=== PATIENT | male | born 1990 | race Caucasian/White ===

== ENCOUNTER 2018-09-18 08:26 | Emergency (ER) | payer OTHER ==
[2018-09-18] MEDS ORDERED: DEXAMETHASONE 10 MG/ML VIAL PO STA (08:46)
--- NOTE | 2018-09-18 08:49 | ED Physician Documentation ---
PD HPI URI - Stated complaint Stated Complaint: COUGH/CHEST CONGESTION - History obtained from History obtained from: Patient - History of Present Illness Timing - onset: How many days ago (4) Timing duration: Days (4) Timing details: Gradual onset, Still present Associated symptoms: Nasal congestion, Rhinorrhea, Sore throat, Productive cough. No: Fever Contributing factors: Sick contact (daughter and son sick with similar) Improves by: Rest Worsened by: Activity Similar symptoms before: Diagnosis (OM) Recently seen: Not recently seen - Additional information Additional information: Previously healthy 28-year-old male who has had a problem previously with otitis has 2 small children at home that are sick with a cough and congestion. He is now developed a cough for the past 2 days and has been coughing up thick yellow phlegm. He is got a bit of a sore throat he does not have shortness of breath or wheezing. Review of Systems Constitutional: reports: Myalgias, Fatigue. denies: Fever Eyes: denies: Decreased vision Ears: denies: Ear pain Nose: reports: Rhinorrhea / runny nose, Congestion Throat: reports: Sore throat Cardiac: denies: Chest pain / pressure, Palpitations Respiratory: reports: Cough. denies: Dyspnea GI: denies: Vomiting PD PAST MEDICAL HISTORY - Present Medications Home Medications: Ambulatory Orders Medication Instructions Recorded Confirmed Amox/Clav 875/125 [Augmentin] 1 each PO Q12H #20 tablet 09/18/18 PD ED PE NORMAL - General General: Alert and oriented X 3, No acute distress, Well developed/nourished - HEENT HEENT: Atraumatic, PERRL, EOMI, Other (minimal inflamation to both TM's with dense erythemat to the pharynx with 1+ tonsils ) - Neck Neck: Supple, no meningeal sign, No bony TTP - Cardiac Cardiac: RRR, No murmur - Respiratory Respiratory: No respiratory distress, Clear bilaterally - Abdomen Abdomen: Soft, Non tender - Back Back: No CVA TTP, No spinal TTP - Derm Derm: Normal color, Warm and dry, No rash - Extremities Extremities: No deformity, No edema - Neuro Neuro: Alert and oriented X 3, scouring machine tender 2-12 intact, No motor deficit, No sensory deficit, Normal speech Eye Opening: Spontaneous Motor: Obeys Commands Verbal: Oriented GCS Score: 15 - Psych Psych: Normal mood, Normal affect PD MEDICAL DECISION MAKING - ED course Complexity details: considered differential, d/w patient, d/w family ED course: 28-year-old male with cough and congestion has a prior history of multiple incidence of otitis and today he has minimal findings on exam. He is administered dexamethasone 10 mg orally and with his prior history we will treat him with antibiotic as well. Departure - Departure Disposition: 01 Home, Self Care Clinical Impression: Otitis media Qualifiers: Otitis media type: suppurative Chronicity: acute Laterality: bilateral Recurrence: not specified as recurrent Spontaneous tympanic membrane rupture: without spontaneous rupture Qualified Code(s): H66.003 - Acute suppurative otitis media without spontaneous rupture of ear drum, bilateral Condition: Stable Instructions: ED Otitis Media Acute Adult Follow-Up: [facility] [Provider Group] Prescriptions: Amox/Clav 875/125 [Augmentin] 1 each PO Q12H #20 tablet
[2018-09-18 08:53] VITALS: BP 117/71
[2018-09-18] MEDS ORDERED: CHERRY SYRUP 10 ML UDC PO ONE (08:58)
== END 2018-09-18 09:13 | disposition home or self-care (01) ==
LOC: ED 08:26
DX: H66.003 Acute suppurative otitis media without spontaneous rupture of ear drum, bilateral (principal)
CPT/HCPCS: 99283; A9270

== ENCOUNTER 2018-10-31 10:40 | Emergency (ER) | payer OTHER ==
--- NOTE | 2018-10-31 12:15 | ED Physician Documentation ---
PD HPI URI - Stated complaint Stated Complaint: THROAT PX/COLD - Chief complaint Chief Complaint: General - History obtained from History obtained from: Patient - History of Present Illness Timing - onset: How many days ago (3) Timing duration: Days Timing details: Gradual onset, Still present Associated symptoms: Nasal congestion, Rhinorrhea, Sinus pain, Dry cough Contributing factors: Sick contact (both children are ill with oM) Improves by: Rest, Medication Similar symptoms before: Has not had sx before Recently seen: Not recently seen - Additional information Additional information: 28-year-old male has developed cough and congestion with sinus pain bit of a sore throat and drainage down the back of his throat. He has 2 small children who have been sick for about 1 week with cough and congestion and he thought they would improve now all 3 of them are ill. Review of Systems Constitutional: reports: Myalgias. denies: Fever Eyes: denies: Decreased vision Ears: denies: Ear pain Nose: reports: Rhinorrhea / runny nose, Congestion, Sinus pressure / pain Throat: reports: Sore throat Respiratory: reports: Cough GI: denies: Vomiting PD PAST MEDICAL HISTORY - Past Medical History Past Medical History: No - Past Surgical History Past Surgical History: No - Present Medications Home Medications: Ambulatory Orders Medication Instructions Recorded Confirmed No Known Home Medications 10/31/18 10/31/18 - Allergies Allergies/Adverse Reactions: Allergies Allergy/AdvReac Type Severity Reaction Status Date / Time nickel Allergy Unknown Verified 10/31/18 10:51 - Social History Does the pt smoke?: Yes Smoking Status: Current every day smoker Does the pt drink ETOH?: Yes Does the pt have substance abuse?: No - Immunizations Immunizations are current?: Yes - POLST Patient has POLST: No PD ED PE NORMAL - Vitals Vital signs reviewed: Yes (normal ) - General General: Alert and oriented X 3, No acute distress, Well developed/nourished - HEENT HEENT: Atraumatic, PERRL, EOMI, Pharynx benign, Other (The right TM is clear and the left is inflamed with indistinct landmarks. There is maxilary sinus point tenderness bilaterally ) - Neck Neck: Supple, no meningeal sign, No bony TTP - Cardiac Cardiac: RRR, No murmur - Respiratory Respiratory: No respiratory distress, Clear bilaterally - Abdomen Abdomen: Soft, Non tender - Back Back: No CVA TTP, No spinal TTP - Derm Derm: Normal color, Warm and dry, No rash - Extremities Extremities: No deformity, No edema - Neuro Neuro: Alert and oriented X 3, scowman 2-12 intact, No motor deficit, No sensory deficit, Normal speech Eye Opening: Spontaneous Motor: Obeys Commands Verbal: Oriented GCS Score: 15 - Psych Psych: Normal mood, Normal affect Results - Vitals Vitals: Vital Signs - 24 hr 10/31/18 10:46 Temperature 36.5 C Heart Rate 71 Respiratory 16 Rate Blood Pressure 126/71 O2 Saturation 98 Oxygen O2 Source Room air PD MEDICAL DECISION MAKING - ED course Complexity details: considered differential, d/w patient ED course: 28-year-old male appears to cut otitis from his children he is administered dexamethasone 10 mg orally and we will place him on some Augmentin. Departure - Departure Disposition: 01 Home, Self Care Clinical Impression: Otitis media Qualifiers: Otitis media type: suppurative Chronicity: acute Laterality: left Recurrence: not specified as recurrent Spontaneous tympanic membrane rupture: without spontaneous rupture Qualified Code(s): H66.002 - Acute suppurative otitis media without spontaneous rupture of ear drum, left ear Instructions: ED Otitis Media Acute Adult Follow-Up: [facility] [Provider Group]
[2018-10-31 12:41] VITALS: BP 114/68
== END 2018-10-31 12:41 | disposition home or self-care (01) ==
LOC: ED 10:40
DX: H66.002 Acute suppurative otitis media without spontaneous rupture of ear drum, left ear (principal); F17.200 Nicotine dependence, unspecified, uncomplicated
CPT/HCPCS: 99283

== ENCOUNTER 2018-12-28 13:30 | Emergency (ER) | payer OTHER ==
[2018-12-28 13:53] VITALS: BP 123/67
--- NOTE | 2018-12-28 14:33 | ED Physician Documentation ---
PD HPI URI - Stated complaint Stated Complaint: FLU LIKE SYSTOMS - Chief complaint Chief Complaint: Heent - Additional information Additional information: 28-year-old male presents the emergency department with himself and his 2 children with complaints of nasal congestion, cough, generally not feeling well and body aches. Symptoms started yesterday. No attempts at symptom management. No reports of shortness of breath, chest pain, abdominal pain, nausea, vomiting diarrhea Review of Systems Constitutional: reports: Myalgias Eyes: denies: Discharge Ears: denies: Ear pain Nose: reports: Congestion Throat: reports: Sore throat Cardiac: denies: Chest pain / pressure Respiratory: denies: Wheezing GI: denies: Abdominal Pain : denies: Dysuria Skin: denies: Rash Musculoskeletal: denies: Neck pain Neurologic: denies: Generalized weakness PD PAST MEDICAL HISTORY - Past Surgical History Past Surgical History: No - Present Medications Home Medications: Ambulatory Orders Medication Instructions Recorded Confirmed Amox/Clav 875/125 [Augmentin] 1 each PO Q12H #20 tablet 10/31/18 - Allergies Allergies/Adverse Reactions: Allergies Allergy/AdvReac Type Severity Reaction Status Date / Time nickel Allergy Unknown Verified 10/31/18 10:51 - Social History Does the pt smoke?: Yes Smoking Status: Current every day smoker Does the pt drink ETOH?: Yes Does the pt have substance abuse?: No - Immunizations Immunizations are current?: Yes - POLST Patient has POLST: No PD ED PE NORMAL - General General: Alert and oriented X 3, No acute distress - HEENT HEENT: Atraumatic, PERRL, EOMI, Ears normal, Moist mucous membranes, Pharynx benign - Neck Neck: Supple, no meningeal sign - Cardiac Cardiac: RRR, Strong equal pulses - Respiratory Respiratory: No respiratory distress, Clear bilaterally - Derm Derm: Normal color - Extremities Extremities: No deformity - Neuro Neuro: Alert and oriented X 3, Normal speech - Psych Psych: Normal affect Results - Vitals Vitals: Vital Signs - 24 hr 12/28/18 13:50 Temperature 36.8 C Heart Rate 88 Blood Pressure 123/67 O2 Saturation 100 Oxygen O2 Source Room air PD MEDICAL DECISION MAKING - ED course ED course: The patient's symptoms are consistent with a viral process and currently the patient appears appropriate for ongoing outpatient management. I discussed warning signs and recommended returning for any worsening or any concerns Departure - Departure Disposition: Home, Self Care Clinical Impression: Viral URI Condition: Good Instructions: ED Upper Resp Infec No Abx Tx Follow-Up: [facility] [Provider Group] Comments: Please return for worsening symptoms or any concern Forms: Activity restrictions
== END 2018-12-28 14:50 | disposition home or self-care (01) ==
LOC: ED 13:30
DX: J06.9 Acute upper respiratory infection, unspecified (principal); F17.200 Nicotine dependence, unspecified, uncomplicated
CPT/HCPCS: 99282

== ENCOUNTER 2019-01-17 13:04 | Emergency (ER) | payer OTHER ==
[2019-01-17] MEDS ORDERED: SODIUM CHLORIDE 0.9% 2,000 ML IV ONE (13:31)
[2019-01-17] MEDS ORDERED: LOPERAMIDE 2 MG CAPSULE PO STA (13:31)
--- NOTE | 2019-01-17 13:33 | ED Physician Documentation ---
PD HPI NVD - Stated complaint Stated Complaint: FLU LIKE SX - Chief complaint Chief Complaint: Abd Pain - History obtained from History obtained from: Patient - History of Present Illness Timing - details: Still present (4 days of watery diarrhea. Feels bloated but no abd pain. Nauseous, but not vomiting. Not sure about fevers. His sons had diarrhea last week but only for 1 day. No travel/abx or camping.) Review of Systems Constitutional: reports: Chills, Myalgias, Fatigue. denies: Fever Respiratory: denies: Dyspnea, Cough GI: reports: Nausea, Diarrhea. denies: Abdominal Pain, Vomiting, Hematemesis, Bloody / black stool PD PAST MEDICAL HISTORY - Past Surgical History Past Surgical History: No - Present Medications Home Medications: Ambulatory Orders Medication Instructions Recorded Confirmed Amox/Clav 875/125 [Augmentin] 1 each PO Q12H #20 tablet 10/31/18 - Allergies Allergies/Adverse Reactions: Allergies Allergy/AdvReac Type Severity Reaction Status Date / Time nickel Allergy Unknown Verified 10/31/18 10:51 - Social History Does the pt smoke?: Yes Smoking Status: Current every day smoker Does the pt drink ETOH?: Yes Does the pt have substance abuse?: No - Immunizations Immunizations are current?: Yes - POLST Patient has POLST: No PD ED PE NORMAL - Vitals Vital signs reviewed: Yes - General General: Alert and oriented X 3, No acute distress - HEENT HEENT: Other (tacky MM) - Cardiac Cardiac: RRR, No murmur - Respiratory Respiratory: No respiratory distress, Clear bilaterally - Abdomen Abdomen: Normal bowel sounds, Soft, Non tender - Back Back: No CVA TTP - Derm Derm: No rash - Neuro Neuro: Alert and oriented X 3, Normal speech Results - Vitals Vitals: Vital Signs - 24 hr 01/17/19 01/17/19 13:16 14:45 Temperature 36.6 C 36.6 C Heart Rate 80 70 Respiratory 16 16 Rate Blood Pressure 134/62 H 132/64 H O2 Saturation 99 100 Oxygen O2 Source Room air - Labs Labs: Microbiology 01/17/19 14:25 Campylobacter Antigen Assay - Final Stool Laboratory Tests 01/17/19 13:50 Sodium 135 Potassium 3.9 Chloride 101 Carbon Dioxide 24 Anion Gap 10.0 BUN 8 Creatinine 1.0 Estimated GFR (MDRD) 90 Glucose 84 Calcium 8.7 Total Bilirubin 0.9 AST 29 ALT 33 Alkaline Phosphatase 45 Total Protein 8.0 Albumin 4.5 Globulin 3.5 Albumin/Globulin Ratio 1.3 Lipase 34 PD MEDICAL DECISION MAKING - ED course ED course: 28 yo M with 4 d diarrhea. Lytes ok, feeling better after IVF, stool sent. Departure - Departure Disposition: Home, Self Care Clinical Impression: Diarrhea Condition: Good Record reviewed to determine appropriate education?: Yes Instructions: ED Gastroenteritis Report Pend Comments: If stool cultures are positive, we will call you. Return if worse. [place] 48 [place]. You can take Imodium which is available [id number] for the diarrhea. Forms: Activity restrictions Discharge Date/Time: 01/17/19 15:40
[2019-01-17 14:38] LABS: ALBUMIN 4.5 g/dL (3.2-5.5); ALBUMIN/GLOBULIN RATIO 1.3 (1.0-2.2); BILIRUBIN,TOTAL 0.9 mg/dL (0.2-1.0); CALCIUM 8.7 mg/dL (8.5-10.3)
[2019-01-17 14:45] VITALS: BP 132/64
== END 2019-01-17 15:40 | disposition home or self-care (01) ==
LOC: ED 13:04
DX: R19.7 Diarrhea, unspecified (principal); F17.200 Nicotine dependence, unspecified, uncomplicated
CPT/HCPCS: 36415; 80053; 83690; 87045; 87046; 87493; 96360; 96361; 99282; 99283; A9270

== ENCOUNTER 2019-07-30 08:05 | Emergency (ER) | payer OTHER ==
--- NOTE | 2019-07-30 08:29 | ED Physician Documentation ---
PD HPI URI - Stated complaint Stated Complaint: SINUS PRESSURE/COUGH - Chief complaint Chief Complaint: Resp - History obtained from History obtained from: Patient - History of Present Illness Timing - onset: How many weeks ago (1) Timing duration: Weeks (1) Timing details: Gradual onset (has had a week of cough, malaise, sore throat, congestion. Persistent.) Associated symptoms: Nasal congestion, Sore throat, Dry cough. No: Fever, Swollen nodes, Chest pain Contributing factors: Sick contact (daughter has similar symptoms.). No: COPD / asthma Improves by: No: Medication (OTC cough meds not helping. Poor sleep with cough.) Similar symptoms before: Has not had sx before Review of Systems Constitutional: reports: Chills, Myalgias. denies: Fever Nose: reports: Congestion Throat: reports: Sore throat Cardiac: denies: Chest pain / pressure Respiratory: reports: Cough. denies: Dyspnea, Wheezing GI: denies: Nausea, Vomiting, Diarrhea Skin: denies: Rash Neurologic: denies: Altered mental status, Headache PD PAST MEDICAL HISTORY - Past Medical History Cardiovascular: None Respiratory: None - Past Surgical History Past Surgical History: No - Present Medications Home Medications: Ambulatory Orders Medication Instructions Recorded Confirmed Benzonatate [Tessalon Perle] 100 mg PO TID PRN #20 capsule 07/30/19 Cetirizine [ZyrTEC] 10 mg PO DAILY #15 tablet 07/30/19 dexAMETHasone [Decadron] 4 mg PO DAILY #5 tablet 07/30/19 - Allergies Allergies/Adverse Reactions: Allergies Allergy/AdvReac Type Severity Reaction Status Date / Time nickel Allergy Unknown Verified 07/30/19 08:22 - Social History Does the pt smoke?: Yes Smoking Status: Current every day smoker Does the pt drink ETOH?: Yes Does the pt have substance abuse?: No - Immunizations Immunizations are current?: Yes - POLST Patient has POLST: No PD ED PE NORMAL - Vitals Vital signs reviewed: Yes - General General: Alert and oriented X 3, No acute distress, Well developed/nourished - HEENT HEENT: Ears normal, Pharynx benign - Neck Neck: Supple, no meningeal sign, No adenopathy - Cardiac Cardiac: RRR, No murmur - Respiratory Respiratory: Clear bilaterally - Derm Derm: Normal color, Warm and dry - Neuro Neuro: Alert and oriented X 3, No motor deficit, Normal speech Results - Vitals Vitals: Vital Signs - 24 hr 07/30/19 07/30/19 08:21 10:13 Temperature 36.8 C 36.0 C L Heart Rate 76 74 Respiratory 20 17 Rate Blood Pressure 132/59 H 132/68 H O2 Saturation 98 100 Oxygen O2 Source Room air PD MEDICAL DECISION MAKING - ED course Complexity details: considered differential (seems like persistent URI symptoms. He is here with his daughter, who has similar but has developed high fevers for past 1-2 days. He is getting checked as well while here.), d/w patient Departure - Departure Disposition: Home, Self Care Clinical Impression: Upper respiratory infection Qualifiers: URI type: unspecified URI Qualified Code(s): J06.9 - Acute upper respiratory infection, unspecified Condition: Stable Record reviewed to determine appropriate education?: Yes Instructions: ED Upper Resp Infec No Abx Tx Prescriptions: Benzonatate [Tessalon Perle] 100 mg PO TID PRN #20 capsule PRN Reason: Cough Cetirizine [ZyrTEC] 10 mg PO DAILY #15 tablet dexAMETHasone [Decadron] 4 mg PO DAILY #5 tablet Comments: This sounds like a viral illness. We can help the symptoms a little bit as this continues to improve. Decadron steroid daily for a few days can help with inflammation and therefore less congestion and cough. Tessalon if needed for cough suppression. You likely have some congestion for still another week or so and some cetirizine daily can help. Otherwise continual improvement. Forms: Activity restrictions Discharge Date/Time: 07/30/19 10:14
[2019-07-30] MEDS ORDERED: BENZONATATE 100 MG CAPSULE PO STA (09:27)
[2019-07-30] MEDS ORDERED: CHERRY SYRUP 10 ML UDC PO ONE (09:27)
[2019-07-30] MEDS ORDERED: DEXAMETHASONE 10 MG/ML VIAL PO STA (09:27)
[2019-07-30 10:13] VITALS: BP 132/68
== END 2019-07-30 10:14 | disposition home or self-care (01) ==
LOC: ED 08:05
DX: J06.9 Acute upper respiratory infection, unspecified (principal); F17.200 Nicotine dependence, unspecified, uncomplicated
CPT/HCPCS: 99283; 99284; A9270

== ENCOUNTER 2019-12-10 11:13 | Emergency (ER) | payer OTHER ==
[2019-12-10 11:33] VITALS: BP 130/89
[2019-12-10] MEDS ORDERED: CHERRY SYRUP 10 ML UDC PO ONE (13:31)
[2019-12-10] MEDS ORDERED: DEXAMETHASONE 10 MG/ML VIAL PO STA (13:31)
--- NOTE | 2019-12-10 13:31 | ED Physician Documentation ---
PD HPI URI - Stated complaint Stated Complaint: COUGH/SORE THROAT - Chief complaint Chief Complaint: Resp - History obtained from History obtained from: Patient - History of Present Illness Timing - onset: How many days ago (33) Timing duration: Days Timing details: Gradual onset, Still present Associated symptoms: Fever, Nasal congestion, Rhinorrhea, Sore throat, Dry cough Contributing factors: Sick contact Improves by: Rest, Medication Similar symptoms before: Diagnosis (OM and sinusitis) Recently seen: Not recently seen - Additional information Additional information: 29-year-old male with a prior history of sinusitis and otitis is developed a cough congestion sore throat and fever over the past 3 days. Review of Systems Constitutional: reports: Fever Eyes: denies: Decreased vision Ears: denies: Ear pain Nose: reports: Rhinorrhea / runny nose, Congestion Throat: reports: Sore throat Cardiac: denies: Chest pain / pressure Respiratory: reports: Cough. denies: Dyspnea GI: denies: Vomiting : denies: Dysuria, Frequency PD PAST MEDICAL HISTORY - Past Medical History Past Medical History: No Cardiovascular: None Respiratory: None - Past Surgical History Past Surgical History: No - Present Medications Home Medications: Ambulatory Orders Medication Instructions Recorded Confirmed Amox/Clav 875/125 [Augmentin] 1 each PO Q12H #20 tablet 12/10/19 - Allergies Allergies/Adverse Reactions: Allergies Allergy/AdvReac Type Severity Reaction Status Date / Time nickel Allergy Unknown Verified 12/10/19 11:33 - Social History Does the pt smoke?: No Smoking Status: Former smoker Does the pt drink ETOH?: Yes Does the pt have substance abuse?: No - Immunizations Immunizations are current?: Yes - POLST Patient has POLST: No PD ED PE NORMAL - Vitals Vital signs reviewed: Yes (tachy and hypertensive ) - General General: Alert and oriented X 3, No acute distress, Well developed/nourished - HEENT HEENT: Atraumatic, PERRL, EOMI, Other (both TM's are flush with retained landmarks the pharynx is with erythema and swelling without exudate) - Neck Neck: Supple, no meningeal sign, No bony TTP, Other (shoddy adenopathy bilaterally ) - Cardiac Cardiac: RRR, No murmur - Respiratory Respiratory: No respiratory distress, Clear bilaterally - Abdomen Abdomen: Soft, Non tender - Back Back: No CVA TTP, No spinal TTP - Derm Derm: Normal color, Warm and dry, No rash - Extremities Extremities: No deformity, No edema, No calf tenderness / cord - Neuro Neuro: router operator radial 2-12 intact, No motor deficit, No sensory deficit, Normal speech Eye Opening: Spontaneous Motor: Obeys Commands Verbal: Oriented GCS Score: 15 - Psych Psych: Normal mood, Normal affect Results - Vitals Vitals: Vital Signs - 24 hr 12/10/19 11:20 Temperature 36.8 C Heart Rate 101 H Respiratory 18 Rate Blood Pressure 130/89 H O2 Saturation 98 Oxygen O2 Source Room air PD MEDICAL DECISION MAKING - ED course Complexity details: considered differential, d/w patient ED course: 29-year-old male with cough congestion sore throat and fever has otitis on examination is administered dexamethasone 10 mg orally we will place him on some Augmentin. Departure - Departure Disposition: 01 Home, Self Care Clinical Impression: Otitis media Qualifiers: Otitis media type: suppurative Chronicity: acute Laterality: bilateral Recurrence: recurrent Spontaneous tympanic membrane rupture: without spontaneous rupture Qualified Code(s): H66.006 - Acute suppurative otitis media without spontaneous rupture of ear drum, recurrent, bilateral Condition: Stable Instructions: ED Otitis Media Acute Adult Follow-Up: [facility] [Provider Group] Prescriptions: Amox/Clav 875/125 [Augmentin] 1 each PO Q12H #20 tablet
== END 2019-12-10 13:48 | disposition home or self-care (01) ==
LOC: ED 11:13
DX: H66.006 Acute suppurative otitis media without spontaneous rupture of ear drum, recurrent, bilateral (principal); J02.9 Acute pharyngitis, unspecified; Z87.891 Personal history of nicotine dependence
CPT/HCPCS: 99282; 99284; A9270

== ENCOUNTER 2022-12-13 18:16 | Emergency (ER) | payer OTHER ==
[2022-12-13] MEDS ORDERED: SODIUM CHLORIDE 0.9% 1,000 ML IV STA (18:32)
[2022-12-13] MEDS ORDERED: LACTATED RINGERS 1,000 ML IV STA (18:37)
[2022-12-13] MEDS ORDERED: ONDANSETRON 4 MG/2 ML VIAL IVP STA (18:37)
[2022-12-13] MEDS ORDERED: LOPERAMIDE 2 MG CAPSULE PO STA (18:37)
--- NOTE | 2022-12-13 18:38 | ED Physician Documentation ---
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 He has mild abdominal pain with it. His also got sick with similar symptoms at the same time but has since improved. No associated fevers. PD PAST MEDICAL HISTORY - Past Medical History Cardiovascular: None Respiratory: None - Past Surgical History Past Surgical History: No - Present Medications Home Medications: Ambulatory Orders Medication Instructions Recorded Confirmed Dextroamphetamine/Amphetamine 10 mg PO DAILY 12/13/22 12/13/22 [Dextroamp-Amphetamine 5 mg Tab] Duloxetine HCl [Cymbalta] 60 mg ORAL DAILY 12/13/22 12/13/22 Ondansetron Odt [Zofran] 4 mg TL Q6H PRN #10 tablet 12/13/22 - Allergies Allergies/Adverse Reactions: Allergies Allergy/AdvReac Type Severity Reaction Status Date / Time nickel Allergy Unknown Verified 12/13/22 18:29 - Social History Does the pt smoke?: No Smoking Status: Former smoker Does the pt drink ETOH?: Yes Does the pt have substance abuse?: No - Immunizations Immunizations are current?: Yes - POLST Patient has POLST: No PD ED PE NORMAL - Vitals Vital signs reviewed: Yes - General General: Alert and oriented X 3, No acute distress - Abdomen Abdomen: Normal bowel sounds, Soft, Non tender - Back Back: No CVA TTP, No spinal TTP - Derm Derm: Normal color, Warm and dry - Extremities Extremities: No edema, No calf tenderness / cord - Neuro Neuro: Alert and oriented X 3, Normal speech Results - Vitals Vitals: Vital Signs - 24 hr 12/13/22 12/13/22 18:23 18:42 Temperature 36.7 C Heart Rate 109 H 88 Respiratory 16 18 Rate Blood Pressure 132/86 H 130/91 H O2 Saturation 99 100 Oxygen O2 Source Room air - Labs Labs: Laboratory Tests 12/13/22 18:40 Sodium 138 Potassium 3.6 Chloride 104 Carbon Dioxide 29 Anion Gap 5.0 L BUN 9 Creatinine 1.0 Estimated GFR (MDRD) 87 L Glucose 97 Calcium 8.7 Total Bilirubin 0.5 AST 22 ALT 25 Alkaline Phosphatase 69 Total Protein 7.1 Albumin 3.9 Globulin 3.2 Albumin/Globulin Ratio 1.2 Lipase 28 PD Medical Decision Making - ED course ED course: 32-year-old gentleman with gastroenteritis. His had a 2. No significant pain with it and his admit exam is benign. CMP reviewed and unremarkable. He was feeling much better after IV fluids and Zofran. Passed p.o. challenge. Given close return precautions. Departure - Departure Disposition: Home, Self Care Clinical Impression: Gastroenteritis Condition: Good Record reviewed to determine appropriate education?: Yes Instructions: ED Gastroenteritis Viral Prescriptions: Ondansetron Odt [Zofran] 4 mg TL Q6H PRN #10 tablet PRN Reason: Nausea / Vomiting Comments: Your history is consistent with gastroenteritis. Generally a benign viral illness. I would expect you to be much better tomorrow, if not please return for reevaluation. Sooner if worse or if new symptoms develop such as severe pain or fever. Forms: Activity restrictions Discharge Date/Time: 12/13/22 20:22
[2022-12-13 18:42] VITALS: BP 130/91
[2022-12-13 18:56] LABS: ALBUMIN 3.9 g/dL (3.2-5.5); ALBUMIN/GLOBULIN RATIO 1.2 (1.0-2.2); BILIRUBIN,TOTAL 0.5 mg/dL (0.2-1.0); CALCIUM 8.7 mg/dL (8.5-10.3); POTASSIUM 3.6 mmol/L (3.5-5.0); TOTAL PROTEIN 7.1 g/dL (6.7-8.2)
[2022-12-13] MEDS ORDERED: ONDANSETRON ODT 4 MG Prepack 2 TL STA (20:09)
== END 2022-12-13 20:22 | disposition home or self-care (01) ==
LOC: ED 18:16
DX: K52.9 Noninfective gastroenteritis and colitis, unspecified (principal); Z87.891 Personal history of nicotine dependence
CPT/HCPCS: 36415; 80053; 83690; 96361; 96374; 99283; 99284; A9270; J7120